=== PATIENT | female | born 1955 | race Caucasian/White ===

== ENCOUNTER → 2016-07-03 | Outpatient (CLI) | payer OTHER | LOC: RAD 12:05 | DX: R42 Dizziness and giddiness (principal); R06.00 Dyspnea, unspecified; R09.89 Other specified symptoms and signs involving the circulatory and respiratory systems; R53.81 Other malaise ==

== ENCOUNTER → 2016-07-04 | Outpatient (CLI) | payer OTHER | LOC: RAD 14:07 | DX: R42 Dizziness and giddiness (principal); R09.89 Other specified symptoms and signs involving the circulatory and respiratory systems; R53.81 Other malaise ==

== ENCOUNTER → 2016-07-10 | Outpatient (CLI) | payer OTHER | LOC: RAD 15:40 | DX: E04.9 Nontoxic goiter, unspecified (principal) ==

== ENCOUNTER → 2016-07-31 | Outpatient (CLI) | payer OTHER | LOC: AMSURD 13:57 | DX: R06.02 Shortness of breath (principal) ==

== ENCOUNTER → 2016-08-03 | Outpatient (CLI) | payer OTHER | LOC: CARDREHAB 08:48 | DX: R06.09 Other forms of dyspnea (principal) | CPT/HCPCS: A9500 ==

== ENCOUNTER → 2016-08-07 | Outpatient (CLI) | payer OTHER | LOC: VAS 08-01 16:17 | DX: R06.02 Shortness of breath (principal); I35.1 Nonrheumatic aortic (valve) insufficiency; I07.1 Rheumatic tricuspid insufficiency ==

== ENCOUNTER → 2016-08-28 | Outpatient (CLI) | payer OTHER | LOC: LAB 11:26 | DX: N39.0 Urinary tract infection, site not specified (principal); B96.20 Unspecified Escherichia coli [E. coli] as the cause of diseases classified elsewhere ==

== ENCOUNTER → 2016-10-02 | Outpatient (CLI) | payer OTHER | LOC: LAB 11:02 | DX: E03.9 Hypothyroidism, unspecified (principal) ==

== ENCOUNTER → 2016-11-15 | Outpatient (CLI) | payer OTHER | LOC: LAB 14:49 | DX: R53.81 Other malaise (principal); E04.9 Nontoxic goiter, unspecified; E03.8 Other specified hypothyroidism; Z87.440 Personal history of urinary (tract) infections; R51 Headache; R42 Dizziness and giddiness ==

== ENCOUNTER → 2016-11-20 | Outpatient (CLI) | payer OTHER | LOC: MAMMO 10:46 | DX: Z12.31 Encounter for screening mammogram for malignant neoplasm of breast (principal) | CPT/HCPCS: G0202 ==

== ENCOUNTER → 2016-12-06 | Outpatient (CLI) | payer OTHER | LOC: MAMMO 13:14 | DX: R92.2 Inconclusive mammogram (principal) ==

== ENCOUNTER → 2017-04-10 | Outpatient (CLI) | payer OTHER | LOC: LAB 14:20 | DX: N30.01 Acute cystitis with hematuria (principal); Z88.1 Allergy status to other antibiotic agents; Z88.0 Allergy status to penicillin ==

== ENCOUNTER → 2017-11-11 | Outpatient (CLI) | payer OTHER | LOC: LAB 14:02 | DX: E03.9 Hypothyroidism, unspecified (principal) ==

== ENCOUNTER → 2018-05-28 | Outpatient (CLI) | payer OTHER ==
[2018-05-28 13:20] LABS: EOS # 0.2 (0.04-0.40); HEMATOCRIT 45.2 % (37.0-47.0); HEMOGLOBIN 14.2 g/dL (12.5-16.0); LYMPH# 1.5 (1.50-4.00); MEAN CELL VOLUME 89 fl (78-100); MEAN CORPUSCULAR HEMOGLOBIN 28 pg (27-31); MEAN CORPUSCULAR HGB CONC 31 g/dL (33-37); MEAN PLATELET VOLUME 11.5 fl (7.4-10.4); MONO # 0.6 (0.20-0.80); NEU # 3.4 (1.40-6.50); PLATELET COUNT 341 K/mm3 (130-400); RED CELL DISTRIBUTION WIDTH 13.5 % (11.5-14.5); WHITE BLOOD COUNT 5.8 K/mm3 (4.8-10.8)
[2018-05-28 13:54] LABS: ALBUMIN 4.4 g/dL (3.5-5.0); CALCIUM 9.6 mg/dL (8.4-10.2); POTASSIUM 4.7 mmol/L (3.6-5.0); TOTAL BILIRUBIN 0.4 mg/dL (0.2-1.3); TOTAL PROTEIN 7.5 g/dL (6.3-8.2)
== END ==
LOC: LAB 12:39
PROVIDERS: Family Medicine
DX: M85.812 Other specified disorders of bone density and structure, left shoulder (principal); M19.012 Primary osteoarthritis, left shoulder; M25.512 Pain in left shoulder; Z00.00 Encounter for general adult medical examination without abnormal findings; E55.9 Vitamin D deficiency, unspecified; E03.9 Hypothyroidism, unspecified

== ENCOUNTER → 2018-06-03 | Outpatient (CLI) | payer OTHER | LOC: MAMMO 10:44 | DX: Z12.31 Encounter for screening mammogram for malignant neoplasm of breast (principal) ==

== ENCOUNTER → 2019-01-30 | Outpatient (CLI) | payer MEDICARE, OTHER ==
[2019-01-30 15:01] LABS: BASO # 0.1 (0.02-0.10); EOS # 0.4 (0.04-0.40); EOS % 6.5 % (1.0-5.0); HEMATOCRIT 44.7 % (37.0-47.0); HEMOGLOBIN 14.2 g/dL (12.5-16.0); LYMPH# 1.6 (1.50-4.00); MEAN CELL VOLUME 89 fl (78-100); MEAN CORPUSCULAR HEMOGLOBIN 28 pg (27-31); MEAN CORPUSCULAR HGB CONC 32 g/dL (33-37); MEAN PLATELET VOLUME 11.9 fl (7.4-10.4); MONO # 0.6 (0.20-0.80); NEU # 3.1 (1.40-6.50); PLATELET COUNT 327 K/mm3 (130-400); RED BLOOD COUNT 5.02 M/mm3 (4.10-5.30); RED CELL DISTRIBUTION WIDTH 13.1 % (11.5-14.5); WHITE BLOOD COUNT 5.7 K/mm3 (4.8-10.8)
[2019-01-30 15:04] LABS: ALBUMIN 4.3 g/dL (3.4-4.8); POTASSIUM 4.1 mmol/L (3.5-5.1)
[2019-01-30 15:05] LABS: CALCIUM 9.8 mg/dL (8.3-10.5)
[2019-01-30 15:06] LABS: TOTAL PROTEIN 7.8 g/dL (6.2-8.1)
[2019-01-30 15:08] LABS: TOTAL BILIRUBIN 0.3 mg/dL (0.2-1.2)
== END ==
LOC: LAB 14:17
PROVIDERS: Family Medicine
DX: E03.9 Hypothyroidism, unspecified (principal); R53.83 Other fatigue

== ENCOUNTER → 2019-02-02 | Outpatient (CLI) | payer MEDICARE, OTHER | LOC: LAB 11:07 | PROVIDERS: Family Medicine | DX: R53.83 Other fatigue (principal) ==

== ENCOUNTER → 2019-02-12 | Outpatient (CLI) | payer MEDICARE, OTHER | LOC: RAD 09:56 | DX: R51 Headache (principal) ==

== ENCOUNTER 2019-05-14 19:23 | Observation (INO) | payer MEDICARE ==
[~2019-05-14] VITALS: Ht 162.6 cm; Wt 59.3 kg
[2019-05-14] MEDS ORDERED: LEVOTHYROXIN0.075 MG PO (19:36)
[2019-05-14] MEDS ORDERED: ZOLPIDEM TART10 MG PO (19:36)
[2019-05-14] MEDS ORDERED: CRANBERRY200 MG PO (19:37)
[2019-05-14] MEDS ORDERED: VITAMIN D325 MC5 PO (19:37)
[2019-05-14 19:50] LABS: BASO # 0.1 (0.02-0.10); EOS # 0.5 (0.04-0.40); EOS % 6.1 % (1.0-5.0); HEMATOCRIT 44.4 % (37.0-47.0); HEMOGLOBIN 14.2 g/dL (12.5-16.0); LYMPH# 2.4 (1.50-4.00); MEAN CELL VOLUME 88 fl (78-100); MEAN CORPUSCULAR HEMOGLOBIN 28 pg (27-31); MEAN CORPUSCULAR HGB CONC 32 g/dL (33-37); MEAN PLATELET VOLUME 11.3 fl (7.4-10.4); MONO # 0.9 (0.20-0.80); NEU # 3.7 (1.40-6.50); PLATELET COUNT 347 K/mm3 (130-400); RED BLOOD COUNT 5.05 M/mm3 (4.10-5.30); RED CELL DISTRIBUTION WIDTH 13.8 % (11.5-14.5); WHITE BLOOD COUNT 7.5 K/mm3 (4.8-10.8)
[2019-05-14 19:59] LABS: ALBUMIN 4.4 g/dL (3.4-4.8)
[2019-05-14 20:00] LABS: POTASSIUM 4.1 mmol/L (3.5-5.1); SODIUM 141 mmol/L (136-145)
[2019-05-14 20:01] LABS: CALCIUM 9.8 mg/dL (8.3-10.5)
[2019-05-14 20:02] LABS: GLUCOSE 111 mg/dL (65-105); TOTAL PROTEIN 7.7 g/dL (6.2-8.1)
[2019-05-14 20:03] LABS: CARBON DIOXIDE 25 mmol/L (23-31)
[2019-05-14 20:04] LABS: TOTAL BILIRUBIN 0.3 mg/dL (0.2-1.2)
[2019-05-14 20:07] LABS: AST-SGOT 20 U/L (5-34)
[2019-05-14 20:08] LABS: ALT/SGPT 18 U/L (0-55)
[2019-05-14 20:15] LABS: TROPONIN-I < 0.03 ng/mL (<0.030)
[2019-05-14 20:16] LABS: URINE APPEARANCE CLEAR; URINE COLOR YELLOW; URINE GLUCOSE NEGATIVE (NEGATIVE); URINE KETONE NEGATIVE (NEGATIVE); URINE PROTEIN(semi-quant) TRACE mg/dL (NEGATIVE)
[2019-05-14 20:17] LABS: URINE BILIRUBIN NEGATIVE (NEGATIVE); URINE BLOOD TRACE (NEGATIVE); URINE LEUKOCYTE ESTERASE 1+ (NEGATIVE); URINE NITRATE NEGATIVE (NEGATIVE); URINE UROBILINOGEN NORMAL (NORMAL)
[2019-05-14 21:36] VITALS: BP 166/78
[2019-05-14 22:00] VITALS: BP 162/82
[2019-05-15 02:00] VITALS: BP 156/86
[2019-05-15 05:46] VITALS: BP 143/81
--- NOTE | 2019-05-15 06:53 | NUR ---
PT ADMITED FOR OBSERVATION AFTER POSSIABLE TIA. PT REQUIRES NO ASSIST DURING THE SHIFT. PT HAS NO FURTHER ISSUSES DURING THE NIGHT. SHE REST QUIETLY DURING THE SHIFT.
--- NOTE | 2019-05-15 09:00 | NUR ---
THE PT IS RESTING COMFORTABLY IN BED. PT DENIES ANY CONCERNS AT THIS TIME. SHE STATES THAT ALL OF HER ADMITTING SYMPTOMS HAVE RESOLVED AND SHE DENIES ANY NUMBNESS/TINGLING OR WEAKNESS AT THIS TIME. THE PT'S NEURO ASSESSMENT APPEARS TO BE WNL AND NO DEFICITS ARE NOTED. THE PT IS NOTIFIED THAT THE CONVEYOR CONSOLE OPERATOR WILL NOT BE ABLE TO DO THE ECHO UNTIL THIS AFTERNOON AND THE PT REQUESTS TO SEE IF THE ECHO CAN BE PERFORMED OUTPATIENT SHE IS WANTING TO GO HOME. THIS REQUEST IS PASSED ON VERBALLY TO DEMETRA WRIGHT APRN AT THIS TIME.
[2019-05-15 09:50] VITALS: BP 150/79
[2019-05-15] MEDS ORDERED: ECOTRIN325 M1 PO (13:45)
[2019-05-15] MEDS ORDERED: ZESTRIL5 M1 PO (13:46)
[2019-05-15 14:10] VITALS: BP 135/65; BP 135/76
--- NOTE | 2019-05-15 14:16 | NUR ---
Met with pt and her to discuss discharge needs. Pt currently lives in [place] with her and their dog. Pt is independent in her ADLs and does not use any DME. Pt does not feel like she has any financial concerns and can afford her medications. Pt is eager to go home today. Reports that she is feeling better. Pt denied any discharge needs at this time. Will continue to follow for other discharge concerns.
--- NOTE | 2019-05-15 15:54 | NUR ---
PT IS DISCHARGED HOME WITH HER . PT AMBULATES OFF OF UNIT WITH ALL PERSONAL BELONGINGS IN HAND. THE PT IS PROVIDED WITH DISCHARGE INSTRUCTIONS AND EDUCATION AND VERBALIZES UNDERSTANDING AND DENIES ANY QUESTIONS OR CONCERNS AT THIS TIME. PT IS PROVIDED WITH STROKE EDUCATION.
== END 2019-05-15 15:55 | disposition home or self-care (01) ==
LOC: ED 19:23 → MED/SURG 21:00
PROVIDERS: ADMIT Nurse Practitioner Family
DX: R20.2 Paresthesia of skin (principal); I10 Essential (primary) hypertension; E03.9 Hypothyroidism, unspecified; Z82.3 Family history of stroke; G47.00 Insomnia, unspecified; Z87.891 Personal history of nicotine dependence; Z88.0 Allergy status to penicillin; Z79.899 Other long term (current) drug therapy
CPT/HCPCS: G0378

== ENCOUNTER → 2019-05-20 | Outpatient (CLI) | payer MEDICARE ==
[2019-05-15 14:10] VITALS: BP 135/65
[~2019-05-20] MED LIST: CRANBERRY200 MG PO; ECOTRIN325 M1 PO; LEVOTHYROXIN0.075 MG PO; VITAMIN D325 MC5 PO; ZESTRIL5 M1 PO; ZOLPIDEM TART10 MG PO
== END ==
LOC: RAD 07:36
DX: G45.9 Transient cerebral ischemic attack, unspecified (principal)
CPT/HCPCS: A9585

== ENCOUNTER → 2019-05-21 | Outpatient (CLI) | payer MEDICARE ==
[2019-05-15 14:10] VITALS: BP 135/65
[2019-05-21 14:42] LABS: BASO # 0.1 (0.02-0.10); EOS # 0.4 (0.04-0.40); EOS % 6.1 % (1.0-5.0); HEMATOCRIT 43.7 % (37.0-47.0); HEMOGLOBIN 13.8 g/dL (12.5-16.0); LYMPH# 1.9 (1.50-4.00); MEAN CELL VOLUME 89 fl (78-100); MEAN CORPUSCULAR HEMOGLOBIN 28 pg (27-31); MEAN CORPUSCULAR HGB CONC 32 g/dL (33-37); MEAN PLATELET VOLUME 11.2 fl (7.4-10.4); MONO # 0.7 (0.20-0.80); NEU # 3.4 (1.40-6.50); PLATELET COUNT 307 K/mm3 (130-400); RED CELL DISTRIBUTION WIDTH 13.7 % (11.5-14.5); WHITE BLOOD COUNT 6.4 K/mm3 (4.8-10.8)
[2019-05-21 14:49] LABS: ALBUMIN 4.4 g/dL (3.4-4.8)
[2019-05-21 14:50] LABS: POTASSIUM 4.2 mmol/L (3.5-5.1)
[2019-05-21 14:51] LABS: CALCIUM 9.5 mg/dL (8.3-10.5)
[2019-05-21 14:52] LABS: TOTAL PROTEIN 7.2 g/dL (6.2-8.1)
[2019-05-21 14:54] LABS: TOTAL BILIRUBIN 0.2 mg/dL (0.2-1.2)
[2019-05-21 15:21] LABS: URINE APPEARANCE CLEAR; URINE COLOR YELLOW; URINE PROTEIN(semi-quant) TRACE mg/dL (NEGATIVE)
[2019-05-21 15:22] LABS: URINE BILIRUBIN NEGATIVE (NEGATIVE); URINE BLOOD TRACE (NEGATIVE); URINE GLUCOSE NEGATIVE (NEGATIVE); URINE KETONE NEGATIVE (NEGATIVE); URINE LEUKOCYTE ESTERASE 1+ (NEGATIVE); URINE NITRATE NEGATIVE (NEGATIVE); URINE UROBILINOGEN NORMAL (NORMAL)
== END ==
LOC: LAB 14:26
PROVIDERS: Nurse Practitioner
DX: R42 Dizziness and giddiness (principal); R82.998 Other abnormal findings in urine

== ENCOUNTER → 2021-06-26 | Outpatient (CLI) | payer MEDICARE, OTHER ==
[2021-06-26 15:55] LABS: BASO # 0.07 K/mm3 (0.02-0.10); EOS # 0.25 K/mm3 (0.04-0.40); EOS % 3.7 % (1.0-5.0); HEMATOCRIT 44.1 % (37.0-47.0); HEMOGLOBIN 14.2 g/dL (12.5-16.0); LYMPH# 1.92 K/mm3 (1.50-4.00); MEAN CELL VOLUME 91 fl (78-100); MEAN CORPUSCULAR HEMOGLOBIN 29 pg (27-31); MEAN CORPUSCULAR HGB CONC 32 g/dL (33-37); MEAN PLATELET VOLUME 11.5 fl (7.4-10.4); MONO # 0.56 K/mm3 (0.20-0.80); NEU # 3.97 K/mm3 (1.40-6.50); PLATELET COUNT 322 K/mm3 (130-400); RED BLOOD COUNT 4.87 M/mm3 (4.10-5.30); RED CELL DISTRIBUTION WIDTH 12.8 % (11.5-14.5); WHITE BLOOD COUNT 6.8 K/mm3 (4.8-10.8)
[2021-06-26 16:01] LABS: ALBUMIN 4.5 g/dL (3.4-4.8)
[2021-06-26 16:02] LABS: CALCIUM 9.7 mg/dL (8.3-10.5)
[2021-06-26 16:04] LABS: TOTAL PROTEIN 7.5 g/dL (6.2-8.1)
[2021-06-26 16:06] LABS: TOTAL BILIRUBIN 0.3 mg/dL (0.2-1.2)
== END ==
LOC: LAB 15:25
PROVIDERS: Family Medicine
DX: Z00.00 Encounter for general adult medical examination without abnormal findings (principal); Z12.11 Encounter for screening for malignant neoplasm of colon; Z12.31 Encounter for screening mammogram for malignant neoplasm of breast; S51.811A Laceration without foreign body of right forearm, initial encounter; E55.9 Vitamin D deficiency, unspecified; E78.5 Hyperlipidemia, unspecified; E03.4 Atrophy of thyroid (acquired); M81.0 Age-related osteoporosis without current pathological fracture; F51.01 Primary insomnia; I10 Essential (primary) hypertension; L30.9 Dermatitis, unspecified; F17.200 Nicotine dependence, unspecified, uncomplicated

== ENCOUNTER → 2021-11-15 | Outpatient (CLI) | payer MEDICARE, OTHER | LOC: VAS 12:52 → RAD 13:00 → VAS 13:00 | DX: I34.0 Nonrheumatic mitral (valve) insufficiency (principal) ==

== ENCOUNTER → 2023-04-03 | Outpatient (CLI) | payer MEDICARE, OTHER ==
[2023-04-07 15:10] LABS: CORN ALLERGEN COUNT <0.10 kU/L (Class 0); EGG WHITE ALLERGEN COUNT 0.18 kU/L (()); MILK ALLERGEN COUNT <0.10 kU/L (Class 0); RUSSIAN THISTLE ALLERGEN COUNT <0.10 kU/L (Class 0); TOMATO ALLERGEN COUNT 0.12 kU/L (()); WHEAT ALLERGEN COUNT <0.10 kU/L (Class 0)
[2023-04-07 15:11] LABS: ALTERNARIA TENUIS CNT <0.10 kU/L (Class 0); ASPERGILLUS FUMIGATUS AL COUNT <0.10 kU/L (Class 0); CAT DANDER ALLERGEN COUNT <0.10 kU/L (Class 0); CLADOSPORIUM ALLERGEN COUNT <0.10 kU/L (Class 0); DOG DANDER ALLERGEN COUNT <0.10 kU/L (Class 0); FIREBUSH ALLERGEN COUNT <0.10 kU/L (Class 0); PEANUT ALLERGEN COUNT <0.10 kU/L (Class 0); ROUGH MARSH ELDER ALLERG COUNT <0.10 kU/L (Class 0); SOYBEAN ALLERGEN COUNT <0.10 kU/L (Class 0)
[2023-04-08 13:12] LABS: ORANGE ALLERGEN COUNT 0.14 kU/L (())
== END ==
LOC: LAB 11:18
PROVIDERS: Nurse Practitioner
DX: D72.10 Eosinophilia, unspecified (principal); J30.2 Other seasonal allergic rhinitis; M54.50 Low back pain, unspecified; M79.89 Other specified soft tissue disorders; F51.04 Psychophysiologic insomnia

== ENCOUNTER → 2023-08-26 | Outpatient (CLI) | payer MEDICARE, OTHER ==
[2023-08-26 14:35] LABS: BASO # 0.04 K/mm3 (0.02-0.10); EOS # 0.54 K/mm3 (0.04-0.40); EOS % 7.3 % (1.0-5.0); HEMATOCRIT 46.4 % (37.0-47.0); HEMOGLOBIN 14.9 g/dL (12.5-16.0); LYMPH# 1.92 K/mm3 (1.50-4.00); MEAN CELL VOLUME 92 fl (78-100); MEAN CORPUSCULAR HEMOGLOBIN 30 pg (27-31); MEAN CORPUSCULAR HGB CONC 32 g/dL (33-37); MEAN PLATELET VOLUME 11.1 fl (7.4-10.4); MONO # 0.74 K/mm3 (0.20-0.80); NEU # 4.14 K/mm3 (1.40-6.50); PLATELET COUNT 296 K/mm3 (130-400); RED BLOOD COUNT 5.05 M/mm3 (4.10-5.30); RED CELL DISTRIBUTION WIDTH 12.6 % (11.5-14.5); WHITE BLOOD COUNT 7.4 K/mm3 (4.8-10.8)
[2023-08-26 14:41] LABS: ALBUMIN 4.5 g/dL (3.4-4.8)
[2023-08-26 14:42] LABS: CALCIUM 9.8 mg/dL (8.3-10.5)
[2023-08-26 14:43] LABS: TOTAL PROTEIN 7.5 g/dL (6.2-8.1)
[2023-08-26 14:45] LABS: TOTAL BILIRUBIN 0.4 mg/dL (0.2-1.2)
[2023-08-26 22:06] LABS: HEPATITIS C VIRUS ANTIBODY Negative (Negative)
== END ==
LOC: LAB 14:16
PROVIDERS: Family Medicine
DX: Z11.59 Encounter for screening for other viral diseases (principal); E78.5 Hyperlipidemia, unspecified; E55.9 Vitamin D deficiency, unspecified; E03.4 Atrophy of thyroid (acquired); I10 Essential (primary) hypertension